=== PATIENT | female | born 1965 | race Caucasian/White ===

== ENCOUNTER → 2020-06-18 | Outpatient (CLI) | payer OTHER ==
[2020-06-20 08:14] LABS: RHEUMATOID ARTHRITIS FACTOR <10.0 IU/mL (0.0-13.9)
[2020-06-21 07:11] LABS: VITAMIN D, 25-HYDROXY 22.9 ng/mL (30.0-100.0)
[2020-06-22 00:09] LABS: CCP ANTIBODIES IGG/IGA 5 units (0-19)
== END ==
LOC: EXRD 14:55 → LAB 14:55
PROVIDERS: Nurse Practitioner Family
DX: M25.531 Pain in right wrist (principal); M25.532 Pain in left wrist; D89.9 Disorder involving the immune mechanism, unspecified; R76.8 Other specified abnormal immunological findings in serum
CPT/HCPCS: 82550; 82728; 83520; 85652; 86140; 86200; 86431

== ENCOUNTER → 2020-06-20 | Outpatient (CLI) | payer OTHER | LOC: LAB 13:07 | DX: D89.9 Disorder involving the immune mechanism, unspecified (principal); M25.50 Pain in unspecified joint; R76.8 Other specified abnormal immunological findings in serum | CPT/HCPCS: 36415 ==